=== PATIENT | female | born 1990 | race Caucasian/White ===

== ENCOUNTER 2019-09-13 14:01 | Emergency (ER) | payer SELFPAY ==
[~2019-09-13] VITALS: Ht 154.9 cm; Wt 51.4 kg
[2019-09-13 15:08] VITALS: BP 118/68
== END 2019-09-13 15:56 | disposition home or self-care (01) ==
LOC: EMS 14:03
DX: S70.361A Insect bite (nonvenomous), right thigh, initial encounter (principal); L03.115 Cellulitis of right lower limb; W57.XXXA Bitten or stung by nonvenomous insect and other nonvenomous arthropods, initial encounter; Y93.89 Activity, other specified; Y92.89 Other specified places as the place of occurrence of the external cause; Y99.8 Other external cause status

== ENCOUNTER 2020-04-03 16:18 | Emergency (ER) | payer MEDICAID ==
[~2020-04-03] VITALS: Ht 154.9 cm; Wt 52.3 kg
[2020-04-03 19:13] VITALS: BP 122/76
[2020-04-03] MEDS ORDERED: MUPIROCIN CALCIUM 2% 22 GM OINTMENT TP ONE (19:15)
== END 2020-04-03 19:20 | disposition home or self-care (01) ==
LOC: EMS 16:18
DX: L73.9 Follicular disorder, unspecified (principal)